=== PATIENT | male | born 1965 | race Caucasian/White ===

== ENCOUNTER 2017-07-17 22:10 | Emergency (ER) | payer OTHER ==
[2017-07-17] MEDS ORDERED: Cefuroxime 250 MG Tab PO ONE (22:11)
[2017-07-17] MEDS ORDERED: Acetaminophen/HYDROcodone 325-5 MG Tab PO ONE (22:11)
[2017-07-17] MEDS ORDERED: Ketorolac 60 MG/2 ML SDV IM ONE (22:38)
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
[2017-07-17] MEDS ORDERED: Lidocaine 1% 20 ML MDV ONE (23:13)
[2017-07-17] MEDS ORDERED: Take Home: Amoxicillin/Clavulanate K 875-125 MG Tab, 2 Tab Pack PO ONE (23:47)
[2017-07-17] MEDS ORDERED: Take Home: Acetaminophen/HYDROcodone 325-5 MG, 2 Tab Pack PO ONE (23:47)
[2017-07-17] MEDS ORDERED: Diphtheria,Pertussis(Acell),Tetanus Vaccine 0.5 ML Syringe IM ONE (23:55)
[2017-07-17] MEDS ORDERED: Take Home: Cefuroxime 250 MG Tab, 2 Tab Pack PO ONE (23:57)
[2017-07-18 03:59] VITALS: BP 143/89
== END 2017-07-18 00:05 | disposition home or self-care (01) ==
LOC: CC.ED 22:10
DX: M79.671 Pain in right foot (principal); S92.421B Displaced fracture of distal phalanx of right great toe, initial encounter for open fracture; Z23 Encounter for immunization; Z88.1 Allergy status to other antibiotic agents; W23.1XXA Caught, crushed, jammed, or pinched between stationary objects, initial encounter
CPT/HCPCS: 73630; 90471; 90715; 96372; 99283; A9270; J1885